=== PATIENT | male | born 1955 | race Hispanic/Latino ===

== ENCOUNTER 2021-01-02 15:04 | Emergency (ER) | payer OTHER, SELFPAY | END 2021-01-02 17:52 | disposition home or self-care (01) | LOC: CSHERS 15:04 | DX: C16.9 Malignant neoplasm of stomach, unspecified (principal); C22.8 Malignant neoplasm of liver, primary, unspecified as to type; I10 Essential (primary) hypertension; K21.9 Gastro-esophageal reflux disease without esophagitis; Z79.899 Other long term (current) drug therapy | CPT/HCPCS: 99283 ==

== ENCOUNTER 2021-03-10 04:52 | Inpatient (IN) | payer OTHER, SELFPAY ==
[2021-03-10] MEDS ORDERED: fentaNYL Citrate-0.9 % NaCl/PF 100 ML IVPB SCH (05:15)
[2021-03-10] MEDS ORDERED: Fentanyl CADD 100 ML IVPB SCH (05:15)
[2021-03-10] MEDS ORDERED: cefTRIAXone\\ROCEPHIN 1 GM VIAL ONE (05:35)
[2021-03-10] MEDS ORDERED: Pantoprazole 40 MG VIAL ONE ×2 (05:36)
[2021-03-10 05:47] LABS: Hemoglobin 4.8 g/dL (13.5-17.5); Mean Corpuscular HGB CONC 27.3 g/dL (32.0-36.0); Mean Corpuscular Hemoglobin 26.4 pg (27.0-33.0); Mean Corpuscular Volume 96.7 fl (81.2-95.1); Mean Platelet Volume 10.7 fl (7.4-10.4); Platelet Count 205 10x3/uL (150-450); RBC Distribution Width 16.5 % (11.5-14.5); Red Blood Cell (RBC) Count 1.82 10x6/uL (4.32-5.72); White Blood Cell (WBC) Count 42.5 10x3/uL (3.5-10.5)
[2021-03-10] MEDS ORDERED: Sodium Bicarb 50 MEQ/50 ML Abboject 8.4% SYRINGE ONE (05:48)
[2021-03-10 05:52] LABS: Actual Bicarbonate (HCO3a) 3.3 mEq/L (22-28); Base Excess (BEa) -29.2 mEq/L (-2.0 to +3.0); CO2 Tension 27.2 mmHg (35.0-45.0); Calcium, Ionized (arterial) 1.17 mmol/L (1.12-1.30); Carboxyhemoglobin (COHb) 2.8 gm% (0.0-3.0); Hemoglobin (Hb) 4.2 g/dL (14.0-18.0); O2 Tension (PaO2), arterial 340.8 mmHg (> 80.0); Potassium - ABG Lab 3.9 mmol/L (3.70-5.30); Puncture Site RBA
[2021-03-10 05:55] LABS: Bilirubin Neg (Negative); Blood, Urine 25 (Negative); Clarity Slightly Cloudy (Clear); Glucose, Urine (Dipstick) Normal (Negative); Ketone, Urine 5 mg/dL (Negative); Leukocyte Negative (Negative); Nitrite Negative (Negative); Protein, Urine (Dipstick) 15 mg/dl (Neg-Trace); Specific Gravity, Urine 1.015 (1.002-1.036)
[2021-03-10 05:57] LABS: ALT (SGPT) 133 U/L (8-55); AST (SGOT) 130 U/L (5-34); Alkaline Phosphatase 61 U/L (40-110); BUN (Urea Nitrogen) 40 mg/dL (8.4-25.7); Bilirubin, Total 0.4 mg/dL (0.2-1.2); Calc. Creatinine Clearance 0 mL/min (70-130); Calcium 8.2 mg/dL (7.8-10.44); Chloride 120 mmol/L (98-107); Globulin 2.4 g/dL (2.4-3.5); Glucose 343 mg/dL (80-115); Lipase 88 U/L (8-78); Potassium 4.7 mmol/L (3.5-5.1); Protein, Total 4.4 g/dL (5.8-8.1); Sodium 147 mmol/L (136-145)
[2021-03-10 05:57] LABS: SARS-CoV-2 NAA Rapid Test Not Detected (NotDetected)
[2021-03-10 05:58] LABS: Carbon Dioxide Less than 8 mmol/L (23-31)
[2021-03-10 06:01] LABS: Acetaminophen Less than 6.0 mcg/mL (10.0-30.0); Alcohol Less than 10 mg/dL (Less than 10); Salicylate Less than 8.0 mg/dL (15.0-30.0)
[2021-03-10] MEDS ORDERED: Ondansetron PF 4 MG/2 ML Vial IVP PRN (06:01)
[2021-03-10 06:03] LABS: Amphetamine Not Detected (NotDetected); Barbiturates Screen Not Detected (NotDetected); Benzodiazepine Screen Not Detected (NotDetected); Cocaine Metabolite Screen Not Detected (NotDetected); Methadone Not Detected (NotDetected); Methamphetamine Not Detected (NotDetected); Opiate Screen Not Detected (NotDetected); Oxycodone Screen Not Detected (NotDetected); Phencyclidine (PCP) Not Detected (NotDetected); THC/Cannabinoid Screen Not Detected (NotDetected); Tricyclic Screen Not Detected (NotDetected)
[2021-03-10 06:05] LABS: WBC/HPF 0-3 HPF (0-3)
[2021-03-10 06:06] LABS: Bacteria/HPF Rare-Few HPF (None Seen); Sperm/HPF 2+ HPF (None Seen); Squamous Epithelial 0-3 HPF (0-3); Transitional Epithelial 0-3 HPF (None Seen)
[2021-03-10] MEDS ORDERED: Dextrose 50% Abboject 50 ML SYRINGE SLOW IVP PRN (06:07)
[2021-03-10] MEDS ORDERED: HumaLOG 300 UNITS/3 ML VIAL SC PRN (06:07)
[2021-03-10] MEDS ORDERED: Dextrose 5% in Water 1,000 ML IV PRN (06:07)
[2021-03-10 06:10] LABS: INR-International Normal Ratio 1.6; Prothrombin Time 17.7 sec (9.5-12.1)
[2021-03-10] MEDS ORDERED: Dexmedetomidine In 0.9 % NaCl 100 ML IVPB SCH (06:15)
[2021-03-10] MEDS ORDERED: Sodium Chloride 0.9% 1,000 ML IV SCH (06:15)
[2021-03-10 06:19] LABS: PTT 128.1 sec (22.0-33.0)
[2021-03-10 07:18] LABS: Band 24 % (5-11); Lymphocytes 18 % (21-51); Metamyelocyte 3 % (0-0); Monocytes 2 % (0-10); Myelocyte 4 % (0-0); Neutrophil 49 % (42-75); Nucleated RBC 6 % (0); Reflex for Review?? YES
[2021-03-10 07:21] LABS: Anisocytosis MODERATE=16-30 cells (100X) (0-5/hpf); Microcytosis SLIGHT = 6-15 cells (100X) (0-5/hpf); Poikilocytosis SLIGHT = 6-15 cells (100X) (0-5/hpf)
[2021-03-10 07:22] LABS: Helmet Cells SLIGHT = 2-5 cells (100X) (0-1/hpf); Macrocytosis SLIGHT = 6-15 cells (100X) (0-5/hpf); Polychromasia MODERATE = 3-4 cells (100X) (0-2/hpf); Schistocytes SLIGHT = 2-5 cells (100X) (0-1/hpf)
[2021-03-10 07:23] LABS: Blister Cells SLIGHT = 2-5 cells (100X) (0-1/hpf); Crenated RBC MODERATE= 6-15 cells (100X) (None Seen)
[2021-03-10 07:24] LABS: Elliptocytes SLIGHT = 2-5 cells (100X) (0-1/hpf); Hypochromia MODERATE=16-30 cells (100X) (0-5/hpf); Ovalocytes SLIGHT = 2-5 cells (100X) (0-1/hpf)
[2021-03-10 07:25] LABS: Platelet Clumps SLIGHT; Platelet Morphology Comment Appears Adequate
[2021-03-10 07:28] LABS: MDiff Complete? YES
[2021-03-10 07:47] LABS: Platelet Count 202 10x3/uL (150-450)
[2021-03-10 08:05] LABS: Fibrinogen 118 mg/dL (220-504)
[2021-03-10 08:23] LABS: FSP-Qualitative ABNORMAL (Normal); FSP-Semiquantitative >=80 & <160 mcg/mL (Less than 5)
[2021-03-10 08:24] LABS: D-Dimer Test Greater than 35.20 mg/L FEU (0.19-0.50)
[2021-03-10 08:32] VITALS: BMI 22.7
[2021-03-10 08:33] LABS: Actual Bicarbonate (HCO3a) 6.7 mEq/L (22-28); Base Excess (BEa) -24.3 mEq/L (-2.0 to +3.0); CO2 Tension 35.3 mmHg (35.0-45.0); Calcium, Ionized (arterial) 1.16 mmol/L (1.12-1.30); Carboxyhemoglobin (COHb) 1.6 gm% (0.0-3.0); Hemoglobin (Hb) 6.8 g/dL (14.0-18.0); Puncture Site RRA; Temperature 35.2 C
[2021-03-10 08:36] LABS: ALV-art Gradient 54.375 mmHg (0-20)
[2021-03-10] MEDS ORDERED: VANCOMYCIN 1.25 GM/250 ML BAG 1.25 GM in Premix Bag 1 BAG IVPB SCH (09:00)
[2021-03-10] MEDS ORDERED: MEROPENEM 1 GM/50 ML 1 GM in Premix Bag 1 BAG IVPB SCH ×2 (09:00→17:00)
[2021-03-10] MEDS ORDERED: Pantoprazole 80 MG, Admixture Fee 1 EACH in Sodium Chloride 0.9% 100 ML IVPB SCH (09:00)
[2021-03-10] MEDS ORDERED: Phytonadione 10 MG/ML AMP SLOW IVP SCH (09:00)
[2021-03-10] MEDS ORDERED: Thiamine HCl 200 MG/2 ML VIAL SLOW IVP SCH (09:00)
[2021-03-10] MEDS ORDERED: Octreotide Acetate 1,250 MCG in Sodium Chloride 0.9% 250 ML 250 ML IVPB SCH (09:00)
[2021-03-10] MEDS ORDERED: Sodium Bicarbonate 75 MEQ in Sodium Chloride 0.45% 1,000 ML IV SCH (09:00)
[2021-03-10 09:44] LABS: Lactic Acid 19.1 mmol/L (0.5-2.2)
[2021-03-10 10:26] LABS: Hemoglobin 6.9 g/dL (13.5-17.5); Mean Corpuscular HGB CONC 29.5 g/dL (32.0-36.0); Mean Corpuscular Hemoglobin 27.5 pg (27.0-33.0); Mean Corpuscular Volume 93.2 fl (81.2-95.1); Mean Platelet Volume 9.8 fl (7.4-10.4); Platelet Count 159 10x3/uL (150-450); RBC Distribution Width 15.9 % (11.5-14.5); Red Blood Cell (RBC) Count 2.51 10x6/uL (4.32-5.72); White Blood Cell (WBC) Count 46.8 10x3/uL (3.5-10.5)
[2021-03-10 10:57] LABS: MDiff Complete? YES
[2021-03-10 11:01] LABS: ALT (SGPT) 306 U/L (8-55); AST (SGOT) 324 U/L (5-34); Albumin 2.3 g/dL (3.4-4.8); Alkaline Phosphatase 77 U/L (40-110); BUN (Urea Nitrogen) 44 mg/dL (8.4-25.7); Band 4 % (5-11); Bilirubin, Total 0.8 mg/dL (0.2-1.2); Calc. Creatinine Clearance 37 mL/min (70-130); Calcium 8.3 mg/dL (7.8-10.44); Carbon Dioxide Less than 8 mmol/L (23-31); Chloride 116 mmol/L (98-107); Globulin 2.9 g/dL (2.4-3.5); Glucose 255 mg/dL (80-115); Hypochromia SLIGHT = 6-15 cells (100X) (0-5/hpf); Lymphocytes 10 % (21-51); Metamyelocyte 1 % (0-0); Monocytes 4 % (0-10); Neutrophil 81 % (42-75); Nucleated RBC 8 % (0); Potassium 5.4 mmol/L (3.5-5.1); Protein, Total 5.2 g/dL (5.8-8.1); Sodium 149 mmol/L (136-145)
[2021-03-10 11:02] LABS: Polychromasia SLIGHT = 2-3 cells (100X) (0-2/hpf)
[2021-03-10 11:08] LABS: Anisocytosis SLIGHT = 6-15 cells (100X) (0-5/hpf)
[2021-03-10 11:09] LABS: Burr Cells SLIGHT = 2-5 cells (100X) (0-1/hpf)
[2021-03-10 11:11] LABS: Ovalocytes SLIGHT = 2-5 cells (100X) (0-1/hpf); Schistocytes SLIGHT = 2-5 cells (100X) (0-1/hpf)
[2021-03-10 11:12] LABS: Large Platelets SLIGHT; Platelet Morphology Comment Appears Adequate
[2021-03-10 12:04] VITALS: TEMP 98.6
[2021-03-10 13:13] VITALS: BP 111/70
[2021-03-10] MEDS: Albumin 25% 25 GM/100 ML BOT IVPB SCH ×2 (13:46→15:27)
[2021-03-10] MEDS ORDERED: Meropenem 1 GM in Sodium Chloride 0.9% 100 ML IVPB SCH (14:00)
[2021-03-11] MEDS ORDERED: Vancomycin 1 GM in Premix Bag 1 BAG IVPB SCH (11:00)
[2021-03-13] MEDS ORDERED: FLU VACC QS2021-22(6MOS UP)/PF 60 MCG/0.5 ML SYRINGE IM ONE (12:45)
[2021-03-13] MEDS ORDERED: Prevnar 13-Val Conj/PF 0.5 ML SYRINGE IM ONE (12:45)
== END 2021-03-10 19:20 | disposition expired | DRG 374 ==
LOC: SUATTDRO 04:52 → CSHERS 04:52 → CSHICU 08:18
PROVIDERS: ADMIT Hospitalist; ATTEND Hospitalist
PROC: 0D9670Z Drainage of Stomach with Drainage Device, Via Natural or Artificial Opening (ICD-10-PCS; principal; 2021-03-10)
PROC: 5A1935Z Respiratory Ventilation, Less than 24 Consecutive Hours (ICD-10-PCS; 2021-03-10)
PROC: 30233K1 Transfusion of Nonautologous Frozen Plasma into Peripheral Vein, Percutaneous Approach (ICD-10-PCS; 2021-03-10)
PROC: 30233N1 Transfusion of Nonautologous Red Blood Cells into Peripheral Vein, Percutaneous Approach (ICD-10-PCS; 2021-03-10)
DX: C78.89 Secondary malignant neoplasm of other digestive organs (principal); G93.41 Metabolic encephalopathy; J96.01 Acute respiratory failure with hypoxia; K25.0 Acute gastric ulcer with hemorrhage; N17.9 Acute kidney failure, unspecified; D62 Acute posthemorrhagic anemia; C22.0 Liver cell carcinoma; E87.2 Acidosis; R57.8 Other shock; Z20.822 Contact with and (suspected) exposure to COVID-19; Z66 Do not resuscitate; Z51.5 Encounter for palliative care; K21.9 Gastro-esophageal reflux disease without esophagitis; M19.90 Unspecified osteoarthritis, unspecified site; F10.10 Alcohol abuse, uncomplicated; F19.10 Other psychoactive substance abuse, uncomplicated; B18.2 Chronic viral hepatitis C; Z79.891 Long term (current) use of opiate analgesic; Z79.899 Other long term (current) drug therapy; I10 Essential (primary) hypertension; Z79.1 Long term (current) use of non-steroidal anti-inflammatories (NSAID)
CPT/HCPCS: 36415; 36416; 36430; 36600; 51702; 70450; 71045; 80053; 80306; 80307; 81003; 81015; 82140; 82805; 83605; 83690; 84484; 85025; 85049; 85060; 85300; 85362; 85379; 85384; 85610; 85730; 86850; 86900; 86901; 87040; 87077; 87086; 87186; 93005; 93010; 94002; 94760; 96365; 96366; 96375; 96376; C9113; J0696; J2354; J2597; J3010; J3490; J7050; P9016; P9047; P9059; U0002